=== PATIENT | female | born 1940 | race Caucasian/White ===

== ENCOUNTER → 2024-02-04 | Outpatient (CLI) | payer MEDICARE ==
[~2024-02-04] MED LIST: ASPIRIN E.C. 8181 MG; CEFDINIR300 MG PO; CLARITIN10 M1 PO; CLOPIDOGREL PO; GLUCOPHAGE PO; LASIX20 M1 PO; LOSARTAN POTASS50 M1 PO; LYMEPAK100 MG PO; OSTEO BI-FLEX1 EAC1 PO; PROAIR HFA0.09 MG/AC IH; PROTONIX TR40 M1 PO; SYMBICORT1 AE2 IH; TOPROL XL100 MG PO; TYLENOL EXTRA500 M2 PO; VIBRAMYCIN HYC100 MG PO
== END ==
LOC: RAD 10:49
DX: M79.89 Other specified soft tissue disorders (principal)

== ENCOUNTER → 2024-06-26 | Outpatient (CLI) | payer MEDICARE | LOC: RAD 10:56 | DX: M25.812 Other specified joint disorders, left shoulder (principal) ==

== ENCOUNTER 2024-09-25 08:52 | Emergency (ER) | payer MEDICARE ==
[~2024-09-25] VITALS: Ht 157.5 cm; Wt 66.0 kg
[2024-09-25] MEDS ORDERED: Albuterol/Ipratropium 3 MG-0.5 MG/3 ML Neb Soln IH ONE (09:45)
[2024-09-25 10:06] LABS: ALBUMIN 3.5 g/dL (3.4-4.8)
[2024-09-25 10:09] LABS: TOTAL PROTEIN 6.5 g/dL (6.2-8.1)
[2024-09-25 10:10] LABS: TOTAL BILIRUBIN 0.4 mg/dL (0.2-1.2)
[2024-09-25 10:23] LABS: BASO # 0.04 K/mm3 (0.02-0.10); EOS # 0.15 K/mm3 (0.04-0.40); EOS % 2.1 % (1.0-5.0); HEMATOCRIT 41.3 % (37.0-47.0); HEMOGLOBIN 12.8 g/dL (12.5-16.0); MEAN CELL VOLUME 91 fl (78-100); MEAN CORPUSCULAR HEMOGLOBIN 28 pg (27-31); MEAN CORPUSCULAR HGB CONC 31 g/dL (33-37); MEAN PLATELET VOLUME 9.1 fl (7.4-10.4); MONO # 0.69 K/mm3 (0.20-0.80); NEU # 3.68 K/mm3 (1.40-6.50); PLATELET COUNT 358 K/mm3 (130-400); RED BLOOD COUNT 4.55 M/mm3 (4.10-5.30); RED CELL DISTRIBUTION WIDTH 14.1 % (11.5-14.5); WHITE BLOOD COUNT 7.2 K/mm3 (4.8-10.8)
[2024-09-25 11:15] VITALS: BP 163/68
== END 2024-09-25 11:26 | disposition home or self-care (01) ==
LOC: ED 08:52
PROVIDERS: Physician Assistant
DX: I10 Essential (primary) hypertension (principal); J44.9 Chronic obstructive pulmonary disease, unspecified; R42 Dizziness and giddiness; R51.9 Headache, unspecified; R11.0 Nausea; R79.89 Other specified abnormal findings of blood chemistry; Z91.040 Latex allergy status; Z79.82 Long term (current) use of aspirin